=== PATIENT | male | born 2000 | race Two or more races ===

== ENCOUNTER 2022-05-11 22:10 | Inpatient (IN) | payer MEDICAID, OTHER ==
[~2022-05-11] VITALS: Ht 172.7 cm; Wt 85.3 kg
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
--- NOTE | 2022-05-11 22:35 | NUR ---
[employer] APPRENTICE AT PT'S BEDSIDE
[2022-05-11] MEDS ORDERED: MORPHINE SULFATE INJ 4 MG/ML DISP.SYRIN ONE (22:58)
[2022-05-11] MEDS ORDERED: ONDANSETRON HCL/PF 4 MG/2 ML VIAL ONE (22:58)
[2022-05-11] MEDS ORDERED: MORPHINE SULFATE INJ 2 MG/ML DISP.SYRIN IV ONE (23:00)
[2022-05-11] MEDS ORDERED: HYDROCODONE/APAP 5/325MG TABLET PO ONE (23:00)
[2022-05-11] MEDS ORDERED: ONDANSETRON HCL/PF 4 MG/2 ML VIAL IV ONE (23:00)
--- NOTE | 2022-05-11 23:10 | NUR ---
[employer] AT PT'S BEDSIDE
--- NOTE | 2022-05-11 23:15 | NUR ---
RAC #18G S/L BLOOD AND COVID ANTIGEN SWAB COLLECTED AND SENT TO LAB
[2022-05-11 23:44] LABS: BASOPHILS # (AUTO) 0.1 K/uL (0.0-0.2); BASOPHILS % (AUTO) 0.6 % (0.0-2.0); EOSINOPHILS % (AUTO) 2.2 % (0.0-6.0); HEMATOCRIT 45 % (39-51); HEMOGLOBIN 15.2 g/dL (13.5-17.5); LYMPHOCYTES # (AUTO) 1.7 K/uL (0.8-4.8); LYMPHOCYTES % (AUTO) 14.6 % (20.0-44.0); MEAN CORPUSCULAR HGB CONC 34 g/dl (31.0-36.0); MEAN CORPUSCULAR VOLUME 99 fL (80-96); MONOCYTES # (AUTO) 0.6 K/uL (0.1-1.30); MONOCYTES % (AUTO) 5.7 % (2.0-12.0); NEUTROPHILS # (AUTO) 8.7 K/uL (1.8-8.9); NEUTROPHILS % (AUTO) 76.9 % (43.0-81.0); PLATELET COUNT (AUTO) 199 K/uL (150-450); RED BLOOD CELL COUNT(AUTO) 4.51 MIL/uL (4.5-6.0); WHITE BLOOD COUNT (AUTO) 11.4 K/uL (4.3-11.0)
[2022-05-11 23:54] LABS: CALCIUM, SERUM 8.5 mg/dL (8.5-10.1); CREATININE 1.1 mg/dL (0.6-1.3); POTASSIUM 3.6 mmol/L (3.5-5.1)
--- NOTE | 2022-05-11 23:56 | NUR ---
CRITICAL LAB: GLUCOSE 409 DR. VALERIY ALAMO NOTIFIED
[2022-05-12] MEDS ORDERED: INSULIN REGULAR, HUMAN 100 UNIT/ML 10 ML VIAL ONE (00:49)
[2022-05-12] MEDS ORDERED: INSULIN REGULAR, HUMAN 100 UNIT/ML 10 ML VIAL IV ONE (01:00)
[2022-05-12] MEDS ORDERED: IV NS 0.9% 1,000 ML BAG IV ONE (01:00)
--- NOTE | 2022-05-12 01:03 | NUR ---
[facility] PAGED
--- NOTE | 2022-05-12 01:38 | NUR ---
REPORT GIVEN TO MICHAEL ALCANTARA FOR SUKUMAR
[2022-05-12] MEDS ORDERED: ZOLPIDEM TARTRATE 5 MG TABLET PO PRN (02:00)
[2022-05-12] MEDS ORDERED: Z GUARD REMEDY 4 OZ OINT TP PRN (02:00)
[2022-05-12] MEDS ORDERED: ONDANSETRON HCL/PF 4 MG/2 ML VIAL IVP PRN (02:00)
[2022-05-12] MEDS ORDERED: ACETAMINOPHEN 325 MG TABLET PO PRN (02:00)
[2022-05-12] MEDS ORDERED: MAG HYDROX/AL HYDROX/SIMETH 30 ML UDC PO PRN (02:00)
[2022-05-12] MEDS ORDERED: MAGNESIUM HYDROXIDE 30 ML UDC PO PRN (02:00)
[2022-05-12 02:25] VITALS: BP 140/62
[2022-05-12] MEDS: MORPHINE SULFATE INJ 2 MG/ML DISP.SYRIN IV PRN ×3 (03:20→13:27)
--- NOTE | 2022-05-12 03:54 | NUR ---
MS FOOD PRESERVATION SCIENTIST NOTES: RECEIVED PATIENT VIA GURNEY FROM ER ON STABLE CONDITION, PLACED IN BED COMFORTABLY, BED IN LOW POSITION CALL LIGHTS WITHIN REACH, NO COMPLAIN OF PAIN AND DISCOMFORT AT THIS TIME, ON ROOM AIR SATURATING WELL, PATIENT IS A/OX4 ABLE TO MAKE NEEDS KNOWN, AMBULATORY WITH ASSISTANCE, WITH IV LINE AT RAC#18 SL, SKIN ASSESSMENT DONE AND DOCUMENTED, INVENTORY OF ITEM DONE, PATIENT WAS REORIENTED TO PLACE, PATIENT KEPT CLEAN AND DRY ALL NEEDS MET WILL CONTINUE TO MONITOR.
--- NOTE | 2022-05-12 06:28 | NUR ---
MS RN CLOSING NOTES: PATIENT SLEEP IN BED COMFORTABLY, AROUSABLE TO VERBAL STIMULI, BED IN LOW POSITION, CALL LIGHTS WITHIN REACH, NO COMPLAIN OF PAIN AND DISCOMFORT AT THIS TIME, A/OX4 ABLE TO MAKE NEEDS KNOWN, AMBULATORY WITH ASSIST, ON ROOM AIR SATURATING WELL , NO SOB WAS OBSERVED, PATIENT KEPT CLEAN AND DRY ALL NEEDS MET ENDORSE TO INCOMING SHIFT
--- NOTE | 2022-05-12 07:50 | NUR ---
MS RN OPENING NOTES RECEIVED PAT ON BED AWAKE A/OX4 ROOM AIR WITH NO SOB OR DISTRESS NOTED , CALL LIGHTS WITHIN REACH, IV ACCESS ON RAC #18 SL , COMPLAIN OF PAIN AND DISCOMFORT AND MORPHINE IV 2MG GIVEN ORDERED AROUND 0742 , ABLE TO MAKE NEEDS KNOWN, BED IN LOWEST POSITION , WILL CONTINUE TO MONITOR
[2022-05-12] MEDS ORDERED: GLIP1TAB5 PO (07:54)
[2022-05-12 08:00] VITALS: BP 150/81
[2022-05-12] MEDS ORDERED: ALBU90AE2 INH (08:21)
[2022-05-12] MEDS ORDERED: *INSULIN REGULAR(HUMULIN R)HUM 100 UNIT/ML VIAL SQ PRN (11:00)
[2022-05-12] MEDS ORDERED: DEXTROSE 50%-WATER 50 ML DISP.SYRIN IV PRN (11:00)
[2022-05-12] MEDS: HYDROCODONE/APAP 5/325MG TABLET PO PRN ×2 (11:01→16:21)
[2022-05-12] MEDS: BLOOD SUGAR DIAGNOSTIC 1 EACH STRIP VI SCH ×2 (11:50→17:24)
[2022-05-12] MEDS: INSULIN REGULAR, HUMAN 100 UNIT/ML 3 ML VIAL SQ PRN ×2 (12:19→17:10)
--- NOTE | 2022-05-12 15:30 | NUR ---
RN NOTES PATIENT SAID THAT HE WANTS TO GO HOME TODAY , HE SAID IF ONLY PAIN MEDICATION HE CAN HAVE IT AT HOME ,PLASTICS AND COMPOSITES INSPECTOR CORRINA MACKAY AWARE AND SHE SAID THAT IF X RAY HAS NO FRACTURE CAN GO HOME TOMORROW , EXPLAINED TO THE PATIENT AND HE SAID " HE CANT WAIT" AND TOLD HIM THAT YOU CAN GO AGAINST MEDICAL ADVICE AND WE CANT PRESCRIBE ANY PAIN MEDICATION AND HE IS JARRELL TO STAY TODAY ,
[2022-05-12 16:00] VITALS: BP 150/80
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
== END 2022-05-12 18:00 | disposition left against medical advice (07) | DRG 135 ==
LOC: ER 22:15 → TELE 05-12 01:44 → MED 05-12 02:44
PROVIDERS: ADMIT Nurse Practitioner Acute Care; ATTEND Nurse Practitioner Acute Care
DX: S22.42XA Multiple fractures of ribs, left side, initial encounter for closed fracture (principal); E11.65 Type 2 diabetes mellitus with hyperglycemia; V47.5XXA Car driver injured in collision with fixed or stationary object in traffic accident, initial encounter; Y92.411 Interstate highway as the place of occurrence of the external cause; J45.909 Unspecified asthma, uncomplicated; Z87.891 Personal history of nicotine dependence; Z79.84 Long term (current) use of oral hypoglycemic drugs; F19.10 Other psychoactive substance abuse, uncomplicated; Z20.822 Contact with and (suspected) exposure to COVID-19
CPT/HCPCS: 36415; 70450-TC; 71045-TC; 71100-TC; 73030-TC; 80048-TC; 82962-TC; 85025-TC; 85730-TC; 87081-TC; 97112-TC; 97116-TC; 97530-TC; C9803; G0378; J1815; J2270; J2405; J7030